=== PATIENT | male | born 1990 ===

== ENCOUNTER 2016-06-01 10:47 | Emergency (ER) | payer MEDICAID ==
[2016-06-01 10:59] VITALS: BP 119/48; PULSE 62; RESP 18; TEMP 97.5; O2SAT 99
--- NOTE | 2016-06-01 12:36 | C.PDOC ---
History Of Present Illness 25 year old male presents to the ED c/o cough associated with nasal congestion, and sore throat for 4 days. Patient is + sick contact in house with child being sick with similar symptoms that occurred previously. Patient denies nausea, vomiting, diarrhea, rash, headache, or any other complaints. Time Seen by Provider: 06/01/16 12:01 Chief Complaint (Nursing): Cough, Cold, Congestion History Per: Patient History/Exam Limitations: no limitations Onset/Duration Of Symptoms: Days Current Symptoms Are (Timing): Still Present Associated Symptoms: Sore Throat, Cough, Nasal Congestion. denies: Fever, Chills Severity: Mild Recent travel outside of the [place]: No Past Medical History Reviewed: Historical Data, Nursing Documentation, Vital Signs Vital Signs: Last Vital Signs Temp 97.5 F L 06/01/16 10:56 Pulse 62 06/01/16 10:56 Resp 18 06/01/16 10:56 BP 119/48 L 06/01/16 10:56 Pulse Ox 99 06/01/16 13:11 Family History: States: No Known Family Hx - Social History Hx Alcohol Use: Yes Hx Substance Use: No - Immunization History Hx Tetanus Toxoid Vaccination: No Hx Influenza Vaccination: No Hx Pneumococcal Vaccination: No Review Of Systems Except As Marked, All Systems Reviewed And Found Negative. Constitutional: Negative for: Fever, Chills ENT: Positive for: Nose Congestion Respiratory: Positive for: Cough Gastrointestinal: Negative for: Nausea, Vomiting, Diarrhea Skin: Negative for: Rash Neurological: Negative for: Headache Physical Exam - Physical Exam Appears: Non-toxic, No Acute Distress Skin: Warm, Dry, No Rash Head: Atraumatic, Normacephalic Eye(s): bilateral: Normal Inspection, PERRL, EOMI Ear(s): Bilateral: Normal Oral Mucosa: Moist Throat: Normal, No Erythema, No Exudate Neck: Normal, Normal ROM, No Supple Chest: Symmetrical, No Tenderness Cardiovascular: Rhythm Regular, No Friction Rub, No Murmur Respiratory: Normal Breath Sounds, No Rales, No Rhonchi, No Stridor, No Wheezing Gastrointestinal/Abdominal: Soft, No Tenderness Back: Normal Inspection, No CVA Tenderness Extremity: Normal ROM Neurological/Psych: Oriented x3, Normal Speech, Normal Cognition, Normal Motor Gait: Steady ED Course And Treatment O2 Sat by Pulse Oximetry: 99 (Room air) Pulse Ox Interpretation: Normal Medical Decision Making Medical Decision Making: Plans: -Reassess and disposition On reassessment, patient is resting comfortably, and is in no acute distress. Patient was instructed to follow up with physician/clinic in 1-2 days for further evaluation. Disposition - Disposition Referrals: [facility] [Outside] Disposition: HOME/ ROUTINE Disposition Time: 12:34 Condition: GOOD Additional Instructions: Follow up with the medical doctor within 1-2 days. Return if worsened, Prescriptions: Ibuprofen [Motrin] 600 mg PO TID #21 tab Benzonatate [Tessalon Perles] 200 mg PO TID PRN #21 sgl PRN Reason: Cough predniSONE [Prednisone] 20 mg PO BID #10 tab Instructions: Upper Respiratory Infection (ED) Forms: School Excuse - Clinical Impression Clinical Impression: Upper respiratory infection - Scribe Statement The provider has reviewed the documentation as recorded by the Scribe Jose David chapman All medical record entries made by the Scribe were at my direction and personally dictated by me. I have reviewed the chart and agree that the record accurately reflects my personal performance of the history, physical exam, medical decision making, and the department course for this patient. I have also personally directed, reviewed, and agree with the discharge instructions and disposition.
== END 2016-06-01 12:54 | disposition home or self-care (01) ==
LOC: C.ER 10:47
DX: J06.9 Acute upper respiratory infection, unspecified (principal)

== ENCOUNTER 2016-10-18 19:25 | Emergency (ER) | payer MEDICAID ==
[2016-10-18 19:32] VITALS: TEMP 99.2; O2SAT 98
--- NOTE | 2016-10-18 20:05 | C.PDOC ---
History Of Present Illness 25 y/o male presents to ED for evaluation of left sided facial pain around the nose and eye since yesterday. (+)congestion (+)body aches (+) left ear pain. Denies fever, cough, shortness of breath, chest pain, or any other associated symptoms at this time. Time Seen by Provider: 10/18/16 19:39 Chief Complaint (Nursing): Cough, Cold, Congestion History Per: Patient History/Exam Limitations: no limitations Onset/Duration Of Symptoms: Days (1) Current Symptoms Are (Timing): Still Present Location Of Pain: Ear(s) (left), Sinus/es, Diffuse Myalgias Sick Contacts (Context): None Associated Symptoms: Myalgias, Nasal Congestion. denies: Fever, Chills, Sore Throat, Cough, Sputum, Neck Pain, Nausea, Vomiting, Diarrhea Ear Symptoms: Left: Ear Pain, Right: None Recent travel outside of the [place]: No Additional History Per: Patient Past Medical History Reviewed: Historical Data, Nursing Documentation, Vital Signs Vital Signs: Last Vital Signs Temp 99.2 F 10/18/16 19:27 Pulse 78 10/18/16 20:13 Resp 18 10/18/16 20:13 BP 132/78 10/18/16 20:13 Pulse Ox 98 10/18/16 21:09 - Medical History PMH: No Chronic Diseases Surgical History: No Surg Hx Family History: States: Unknown Family Hx - Social History Hx Alcohol Use: Yes Hx Substance Use: No - Immunization History Hx Tetanus Toxoid Vaccination: No Hx Influenza Vaccination: No Hx Pneumococcal Vaccination: No Review Of Systems Except As Marked, All Systems Reviewed And Found Negative. Constitutional: Positive for: Other (body aches). Negative for: Fever, Chills ENT: Positive for: Ear Pain (left), Nose Congestion, Other (left side facial pain around eye and nose). Negative for: Ear Discharge, Nose Discharge, Throat Pain Cardiovascular: Negative for: Chest Pain, Palpitations Respiratory: Negative for: Cough, Shortness of Breath, Sputum Skin: Negative for: Rash Physical Exam - Physical Exam Appears: Non-toxic, No Acute Distress Skin: Normal Color, Warm, Dry Head: Atraumatic, Normacephalic, Tenderness (frontal and maxillary sinus tenderness) Eye(s): bilateral: Normal Inspection, PERRL, EOMI Ear(s): Bilateral: TM Obscured By Wax Nose: Normal Oral Mucosa: Moist Throat: Normal, No Erythema, No Exudate, No Drooling Neck: Normal ROM, Supple Chest: Symmetrical Cardiovascular: Rhythm Regular, No Murmur Respiratory: Normal Breath Sounds, No Rales, No Rhonchi, No Wheezing Extremity: Normal ROM Neurological/Psych: Oriented x3, Normal Speech ED Course And Treatment O2 Sat by Pulse Oximetry: 98 (on RA) Pulse Ox Interpretation: Normal Progress Note: Pt is instructed to follow up with his primary medical doctor or clinic in 2-5 days for further evaluation. Disposition - Disposition Disposition: HOME/ ROUTINE Disposition Time: 20:02 Condition: STABLE Additional Instructions: Follow up with your primary medical doctor or clinic in 2-5 days for further evaluation. Take medications as prescribed. Return to the emergency department at any time if symptoms persist or worsen. Prescriptions: Amoxicillin 875 mg PO BID #14 tablet Fluticasone Nasal [Flonase] 1 actuation NS DAILY #1 spr Guaifen/Dextromethorphan/PE [Mucinex Fast-Max Congest-Cough] 1 each PO Q6 #20 tablet Instructions: Sinusitis (ED) Forms: [employer] (Uzbek) - Clinical Impression Clinical Impression: Sinusitis - PA / DEPARTMENT SPECIALIST / Resident Statement MD/DO has reviewed & agrees with the documentation as recorded. - Scribe Statement The provider has reviewed the documentation as recorded by the Scribe Star Wofle All medical record entries made by the Scribe were at my direction and personally dictated by me. I have reviewed the chart and agree that the record accurately reflects my personal performance of the history, physical exam, medical decision making, and the department course for this patient. I have also personally directed, reviewed, and agree with the discharge instructions and disposition.
[2016-10-18 20:14] VITALS: BP 132/78; PULSE 78; RESP 18
== END 2016-10-18 20:14 | disposition home or self-care (01) ==
LOC: C.ER 19:25
DX: J32.9 Chronic sinusitis, unspecified (principal); F17.210 Nicotine dependence, cigarettes, uncomplicated

== ENCOUNTER 2017-03-18 02:25 | Emergency (ER) | payer SELFPAY ==
--- NOTE | 2017-03-18 03:25 | C.PDOC ---
History Of Present Illness 26 year old male presents to the ER with a complaint of itching, irritation, and erythema to the face after using calcipotriene, an antipsoriasis cream. Patient reports he used it twice and believes he is having an allergic reaction. Denies swelling or difficulty breathing. Time Seen by Provider: 03/18/17 02:50 Chief Complaint (Nursing): Abnormal Skin Integrity History Per: Patient History/Exam Limitations: no limitations Onset/Duration Of Symptoms: Hrs Current Symptoms Are (Timing): Still Present Location Of Injury: Anterior: Face Quality Of Symptoms: Itching, Other (Irritation) Recent travel outside of the [place]: No Past Medical History Reviewed: Historical Data, Nursing Documentation, Vital Signs Vital Signs: Last Vital Signs Temp 98 F 03/18/17 03:28 Pulse 79 03/18/17 03:28 Resp 18 03/18/17 03:28 BP 121/66 03/18/17 03:28 Pulse Ox 98 03/18/17 06:16 Family History: States: Unknown Family Hx - Social History Hx Alcohol Use: Yes Hx Substance Use: No - Immunization History Hx Tetanus Toxoid Vaccination: No Hx Influenza Vaccination: No Hx Pneumococcal Vaccination: No Review Of Systems Constitutional: Negative for: Fever, Chills ENT: Negative for: Mouth Swelling, Throat Swelling Respiratory: Negative for: Shortness of Breath, Wheezing Skin: Positive for: Other (Redness, itching, irritation) Physical Exam - Physical Exam Appears: Non-toxic, No Acute Distress Skin: Warm, Dry, Rash (Erythematous rash to forehead and beardline) Head: Atraumatic, Normacephalic, No Swelling (Facial) Eye(s): bilateral: Normal Inspection Ear(s): Bilateral: Normal Oral Mucosa: Moist Tongue: Normal Appearing, No Swelling Lips: Normal Appearing, No Swelling Throat: Normal, No Erythema, No Other (Swelling) Neck: Normal, Supple Chest: Symmetrical, No Tenderness Cardiovascular: Rhythm Regular Respiratory: Normal Breath Sounds, No Accessory Muscle Use, No Rales, No Rhonchi , No Stridor, No Wheezing Neurological/Psych: Oriented x3, Normal Speech ED Course And Treatment O2 Sat by Pulse Oximetry: 98 (Room air) Pulse Ox Interpretation: Normal Progress Note: Benadryl and prednisone administered. Patient is resting comfortably in the ER, with no swelling, clear breath sounds, and in no acute distress. Will discharge home with Rx and instruction to stop calcipotriene until follow up with critical care transport nurse or return to ER if symptoms worsen. Disposition Counseled Patient/Family Regarding: Diagnosis, Need For Followup, Rx Given - Disposition Referrals: critical care transport nurse, Private [Other] Disposition: HOME/ ROUTINE Disposition Time: 03:22 Condition: STABLE Additional Instructions: Hold Calcipotriene oint until seen by critical care transport nurse Use zyrtec and prednisone as prescribed Wash face with cool water only Return to ER if moderate swelling of face, lips, difficulty breathing or worse Prescriptions: Cetirizine HCl [Zyrtec] 10 mg PO DAILY #15 capsule predniSONE [Prednisone] 40 mg PO DAILY #8 tab Instructions: Prednisone (By mouth), Cetirizine (By mouth), Contact Dermatitis (ED) Forms: [employer] (Syriac) - Clinical Impression Clinical Impression: Contact dermatitis - PA / BEATER ROOM SUPERVISOR / Resident Statement MD/DO has reviewed & agrees with the documentation as recorded. - Scribe Statement The provider has reviewed the documentation as recorded by the Scriblory Mckeon All medical record entries made by the Marthaiblory were at my direction and personally dictated by me. I have reviewed the chart and agree that the record accurately reflects my personal performance of the history, physical exam, medical decision making, and the department course for this patient. I have also personally directed, reviewed, and agree with the discharge instructions and disposition.
[2017-03-18 03:28] VITALS: BP 121/66; PULSE 79; RESP 18; TEMP 98
[2017-03-18 06:12] VITALS: O2SAT 98
== END 2017-03-18 03:31 | disposition home or self-care (01) ==
LOC: C.ER 02:25
DX: L25.9 Unspecified contact dermatitis, unspecified cause (principal)